=== PATIENT | female | born 1970 | race Caucasian/White ===

== ENCOUNTER → 2023-03-26 14:50 | Outpatient (BNVA) | payer OTHER, SELFPAY | PROVIDERS: PCP Family Medicine; Visit Provider Family Medicine | DX: Z76.89 Persons encountering health services in other specified circumstances (principal); Z11.59 Encounter for screening for other viral diseases; E03.9 Hypothyroidism, unspecified; R73.03 Prediabetes; D50.9 Iron deficiency anemia, unspecified | CPT/HCPCS: 80053; 80061; 82728; 83036; 83550; 84443; 84466; 85025; 86803; 87806 ==

== ENCOUNTER 2025-01-27 08:44 | Emergency (ER) | payer OTHER, SELFPAY ==
[2025-01-27 09:30] VITALS: BP 147/89; PULSE 135; RESP 18; TEMP 36.7; O2SAT 98; BMI 23.2
[2025-01-27 10:00] LABS: Basophils % 0.5 %; Eosinophils # 0.1 10^3/uL (0.0-0.8); Eosinophils % 1.4 %; Hematocrit 42.5 % (36-47); Lymphocytes # 1.4 10^3/uL (0.8-4.8); Lymphocytes % 32.7 %; Mean Corpuscular HGB Conc 33.9 g/dL (30-55); Mean Corpuscular Hemoglobin 30.5 pg (27-33); Mean Platelet Volume 11.2 fL (7.4-10.4); Monocytes # 0.5 10^3/uL (0.2-0.9); Monocytes % 10.5 %; Neutrophils # 2.34 10^3/uL (1.8-7.7); Neutrophils % 54.7 %; Nucleated Red Blood Cells % 0 %; Platelet Count 208 10^3/cmm (157-399); Red Blood Count 4.72 10^6/uL (3.85-5.65); White Blood Count 4.28 10^3/uL (3.29-11.43)
[2025-01-27 10:07] VITALS: BP 117/83; O2SAT 98
[2025-01-27 10:18] LABS: Alanine Aminotransferase 15 U/L (0-33); Albumin Level 4.3 g/dL (3.5-5.2); Alkaline Phosphatase 60 U/L (35-105); Blood Urea Nitrogen 6 mg/dL (6-20); Calcium 9.7 mg/dL (8.5-10.5); Carbon Dioxide 21 mmol/L (22-29); Chloride 102 mmol/L (98-107); Creatine Phosphokinase 198 U/L (26-192); Creatinine Clr Calc Pharmacy 91.9458; Globulin 3.4 g/dL (1.3-4.6); Glucose 91 mg/dL (65-115); Osmolality Calculated 287 mOsm/kg (285-295); Sodium 140 mmol/L (136-145); Total Protein 7.7 g/dL (6.6-8.7)
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
[2025-01-27 10:23] LABS: Anion Gap 21.5 (5-19); Aspartate Amino Transferase 26 U/L (0-32); Potassium 4.5 mmol/L (3.5-5.1)
[2025-01-27 10:25] LABS: Bilirubin Urine Negative (Negative); Blood Urine Negative (Negative); Glucose Urine UA Negative (Normal); Ketones Urine 1+ (Negative); Leukocyte Esterase Urine Negative (Negative); Nitrate Urine Negative (Negative); Protein Urine 1+ (Negative); Specific Gravity, Urine 1.016 (1.005-1.030); Urine Appearance Cloudy (CLEAR); Urine Color Yellow (Yellow); Urobilinogen Urine 0.2 mg/dL (Negative)
[2025-01-27 10:30] LABS: Add Urine Microscopic? YES; Bacteria Urine Trace /hpf; Hyaline Casts Urine 44.25 /lpf; WBC Urine 0-5 /hpf (0-5)
[2025-01-27 10:42] LABS: Fine Granular Casts Urine 0-4 /lpf; UA Slide Review UA Slide Review Perf
[2025-01-27 10:43] LABS: Add Urine Culture? No
[2025-01-27 11:30] VITALS: PULSE 86; O2SAT 100
[2025-01-27 11:49] VITALS: BP 111/72; PULSE 81; O2SAT 100
== END 2025-01-27 11:50 | disposition home or self-care (01) ==
PROVIDERS: Family Medicine; Emergency Provider Emergency Medicine
DX: H69.93 Unspecified Eustachian tube disorder, bilateral (principal); T14.8XXA Other injury of unspecified body region, initial encounter; Z79.84 Long term (current) use of oral hypoglycemic drugs; X37.1XXA Tornado, initial encounter
CPT/HCPCS: 36415; 70450; 71250; 80053; 81001; 82550; 85025; 99284

== ENCOUNTER 2025-04-21 13:58 | Outpatient (CLI) | payer OTHER, SELFPAY ==
--- NOTE | 2025-04-21 14:02 | MM_ITS ---
WS: [id number] BILATERAL 3D TOMOSYNTHESIS DIGITAL SCREENING MAMMOGRAPHY WITH CAD CLINICAL INFORMATION: SCREENING HISTORY: Screening mammogram. No current complaints. COMPARISON: Baseline TECHNIQUE: Bilateral CC and MLO views. FINDINGS: The breasts are composed of heterogeneous fibroglandular density tissue, which can limit the detection of small underlying mass lesions. No suspicious mass, asymmetry, calcifications, or architectural distortion. No evidence of malignancy. A few incidental punctate calcifications. Partially visualized RIGHT axillary lymph nodes MM/MM scr tomosynthesis [id number] IMPRESSION: DENSITY: There are scattered areas of fibroglandular density. BI-RADS: 2 - Benign. FOLLOW UP: 1 Year Follow-up Recommend return to annual screening mammography.
== END 2025-04-21 13:59 | disposition home or self-care (01) ==
DX: Z12.31 Encounter for screening mammogram for malignant neoplasm of breast (principal); R92.323 Mammographic fibroglandular density, bilateral breasts; R92.1 Mammographic calcification found on diagnostic imaging of breast; R59.0 Localized enlarged lymph nodes
CPT/HCPCS: 77063; 77067